=== PATIENT | female | born 1965 | race Caucasian/White ===

== ENCOUNTER 2017-03-01 18:49 | Observation (INO) ==
[2017-03-01] MEDS ORDERED: Aspirin 81 MG TAB.CHEW PO ONE (19:08)
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
[2017-03-01 19:30] LABS: Basophils % 0.4 %; Eosinophils # 0.2 K/mcL (0.0-0.6); Eosinophils % 2.5 %; Hematocrit 35.6 % (35.3-44.9); Hemoglobin 12.7 g/dL (11.5-15.4); Immature Granulocytes % 0.4 % (0-4); Lymphocytes % 29.5 %; Mean Corpuscular HGB Conc 35.7 g/dL (31.6-35.5); Mean Corpuscular Hemoglobin 31.1 pg (28.0-33.3); Mean Platelet Volume 10.1 fL (9.4-12.4); Monocytes # 0.6 K/mcL (0.0-1.3); Monocytes % 9.4 %; Neutrophils # 3.9 K/mcL (1.6-8.9); Platelet Count 189 K/mcL (140-400); Red Blood Count 4.09 M/mcL (3.82-4.97); Red Cell Distribution Width 12.2 % (11.5-14.5); Segmented Neutrophils % 57.8 %
[2017-03-01 19:38] LABS: Prothrombin Time 10.8 Seconds (9.4-12.1)
[2017-03-01 19:41] LABS: Activated Partial Thrombo Time 30.3 Seconds (26.0-36.0)
[2017-03-01 19:46] LABS: Alanine Aminotransferase 252 Units/L (0-55); Albumin 3.4 g/dL (3.5-5.0); Albumin/Globulin Ratio 1.3 (1.1-2.2); Alkaline Phosphatase 258 Units/L (38-126); Aspartate Amino Transferase 525 Units/L (5-34); BUN/Creatinine Ratio 22 (6-26); Bilirubin,Total 0.5 mg/dL (0.2-1.2); Blood Urea Nitrogen 14 mg/dL (7-20); Calcium 8.8 mg/dL (8.6-10.8); Carbon Dioxide 27 mEq/L (19-29); Chloride 87 mEq/L (98-109); Globulin 2.7 g/dL (2.4-3.5); Glucose 155 mg/dL (70-99); Osmolality,Calculated 260 (280-300); Potassium 4.2 mEq/L (3.5-4.5); Sodium 123 mEq/L (136-145); Total Protein 6.1 g/dL (6.0-8.3); eGFR For African Americans > 60 (> 60); eGFR For Non-African Americans > 60 (> 60)
[2017-03-01 20:05] LABS: Thyroid Stimulating Hormone 1.081 mcIU/mL (0.350-4.840); Valproate 44.8 mcg/mL (50-100)
[2017-03-01 21:24] LABS: Bilirubin,Urine Negative (Negative); Blood,Urine Trace-intact (Negative); Clarity,Urine Clear (Clear); Color,Urine Yellow (Yellow); Glucose,Urine (UA) 500 mg/dL (Normal); Ketones,Urine Negative (Negative); Leukocyte Esterase,Urine Negative (Negative); Nitrite,Urine Negative (Negative); PH,Urine 7.5 pH Units (5.0-8.0); Protein,Urine 100 mg/dL (Neg-Trace); Specific Gravity,Urine 1.015 (1.010-1.025); Urobilinogen,Urine Normal (Normal)
[2017-03-01 21:34] LABS: Bacteria,Urine Moderate per hpf (None-Few); RBC,Urine 0-3 per hpf (0-3); Squamous Epithelial Cell,Urine Many per lpf (None-Few); WBC,Urine 0-3 per hpf (0-3)
[2017-03-01 21:35] LABS: Amorphous Sediment,Urine Few (Few)
[2017-03-01] MEDS ORDERED: Naloxone 0.4 MG/ML INJ IVP PRN (21:45)
[2017-03-01] MEDS ORDERED: *HR* Dextrose 50 % in Water (Syg) 50 ML SYRINGE IVP PRN (21:45)
[2017-03-01] MEDS ORDERED: Dextrose Gel 15 GM PO PRN ×2 (21:45)
[2017-03-01] MEDS ORDERED: Ibuprofen 600 MG TABLET PO PRN (21:45)
[2017-03-01] MEDS ORDERED: D5% in Water 1,000 ML IVC PRN (21:45)
[2017-03-01] MEDS ORDERED: Albuterol 2.5 MG/3 ML NEBULIZER IH PRN (21:45)
[2017-03-01] MEDS ORDERED: Valproic Acid Oral Soln 250 MG/5 ML UDC PO SCH (21:45)
[2017-03-01] MEDS ORDERED: Insulin DETEMIR 100 UNIT/ML per UNIT SQ ONE (22:15)
[2017-03-01] MEDS: 0.9 % Sodium Chloride 1,000 ML IVC SCH (23:09)
[2017-03-02] MEDS: Fish Oil Omega-3 Softgel PO SCH ×2 (03:41→08:29)
[2017-03-02] MEDS: Gabapentin 300 MG CAPSULE PO SCH ×3 (03:45→15:50)
[2017-03-02] MEDS: MENTHOL TP SCH ×3 (03:46→12:44)
[2017-03-02] MEDS: Famotidine 20 MG TABLET PO SCH ×2 (03:47→08:27)
[2017-03-02] MEDS: OXcarbazepine 150 MG TABLET PO SCH ×2 (03:47→08:27)
[2017-03-02 07:30] LABS: INR 0.9; Prothrombin Time 9.7 Seconds (9.4-12.1)
[2017-03-02 07:33] LABS: Activated Partial Thrombo Time 28.4 Seconds (26.0-36.0)
[2017-03-02] MEDS: Insulin LISPRO 300 UNITS/3 ML VIAL SQ SCH ×3 (08:26→15:50)
[2017-03-02] MEDS ORDERED: Cholecalciferol (D-3) 1,000 UNIT TABLET PO SCH (09:00)
[2017-03-02] MEDS ORDERED: Multivit/Ca/Min/Fe/FA 1 TAB TABLET PO SCH (09:00)
[2017-03-02] MEDS ORDERED: Saline Nasal Spray 44 ML BOTTLE NS SCH (09:00)
[2017-03-02] MEDS ORDERED: Divalproex (12 HR) 250 MG TABLET PO SCH (09:00)
[2017-03-02] MEDS ORDERED: Budesonide/Formoterol 80/4.5 MDI IH SCH (10:00)
[2017-03-02] MEDS: 0.9 % Sodium Chloride 1,000 ML IVC SCH (10:11)
[2017-03-02 10:35] VITALS: BP 139/61
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
[2017-03-02 15:51] LABS: Alanine Aminotransferase 249 Units/L (0-55); Albumin 3.4 g/dL (3.5-5.0); Albumin/Globulin Ratio 1.2 (1.1-2.2); Alkaline Phosphatase 244 Units/L (38-126); Aspartate Amino Transferase 114 Units/L (5-34); BUN/Creatinine Ratio 19 (6-26); Bilirubin,Total 0.2 mg/dL (0.2-1.2); Blood Urea Nitrogen 15 mg/dL (7-20); Calcium 8.8 mg/dL (8.6-10.8); Carbon Dioxide 24 mEq/L (19-29); Chloride 102 mEq/L (98-109); Globulin 2.9 g/dL (2.4-3.5); Glucose 405 mg/dL (70-99); Osmolality,Calculated 294 (280-300); Potassium 5.6 mEq/L (3.5-4.5); Sodium 133 mEq/L (136-145); Total Protein 6.3 g/dL (6.0-8.3); eGFR For African Americans > 60 (> 60); eGFR For Non-African Americans > 60 (> 60)
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
[2017-03-02] MEDS ORDERED: Valproic Acid Oral Soln 250 MG/5 ML UDC PO SCH (21:00)
[2017-03-02] MEDS ORDERED: Insulin DETEMIR 100 UNIT/ML X5UNITS SQ SCH (21:00)
[2017-03-02] MEDS ORDERED: Insulin LISPRO 300 UNITS/3 ML VIAL SQ SCH (21:00)
[2017-03-02 23:48] LABS: Hepatitis A Antibody IgM Nonreactive (Nonreactive); Hepatitis B Core IgM Nonreactive (Nonreactive); Hepatitis B Surface Antigen Nonreactive (Nonreactive); Hepatitis C Virus Antibody Nonreactive (Nonreactive)
--- NOTE | 2017-03-03 21:50 | Electrocardiograph Report ---
[address] [place], [place] [address] Test Date: 2017-03-01 Pat Name: Alpa Stallworth Department: [id number] Room: [facility] Gender: F Subsea Engineer: [id number] : 1965 Requested By: Cecilia Maloney Order Number: [id number] Reading MD: Bill Yanez MD Measurements Intervals [place] Rate: 80 P: 72 TN: 195 QRS: 74 QRSD: 98 T: -49 QT: 369 QTc: 405 Interpretive Statements SINUS RHYTHM INFERIOR ISCHEMIA Electronically Signed On 03-03-2017 21:48:46 EST by Bill Yanez MD
== END 2017-03-02 17:30 | disposition home or self-care (01) ==
LOC: EMEROOPIK 18:49 → INPPIK 18:49
PROVIDERS: ADMIT Internal Medicine; ATTEND Internal Medicine

== ENCOUNTER 2017-06-12 12:36 | Observation (INO) ==
[2017-06-12 13:45] LABS: Basophils % 0.4 %; Eosinophils # 0.2 K/mcL (0.0-0.6); Eosinophils % 1.8 %; Hematocrit 35.6 % (35.3-44.9); Hemoglobin 12.2 g/dL (11.5-15.4); Immature Granulocytes % 1.7 % (0-4); Lymphocytes # 1.9 K/mcL (0.6-4.6); Lymphocytes % 22.9 %; Mean Corpuscular HGB Conc 34.3 g/dL (31.6-35.5); Mean Corpuscular Hemoglobin 30.5 pg (28.0-33.3); Mean Platelet Volume 10.3 fL (9.4-12.4); Monocytes # 0.8 K/mcL (0.0-1.3); Monocytes % 10.3 %; Neutrophils # 5.2 K/mcL (1.6-8.9); Platelet Count 340 K/mcL (140-400); Segmented Neutrophils % 62.9 %
[2017-06-12 13:57] LABS: BUN/Creatinine Ratio 24 (6-26); Blood Urea Nitrogen 12 mg/dL (6-20); Calcium 8.9 mg/dL (8.6-10.3); Carbon Dioxide 28 mEq/L (23-29); Chloride 91 mEq/L (98-107); Glucose 108 mg/dL (70-105); Osmolality,Calculated 258 (280-300); Potassium 4.4 mEq/L (3.5-5.1); Sodium 124 mEq/L (136-145); eGFR For Non-African Americans > 60 (> 60)
--- NOTE | 2017-06-12 13:57 | Emergency Department Note ---
Disposition Clinical Impression: Hyponatremia, Altered mental state, Elevated blood pressure reading Diabetes mellitus Qualifiers: Diabetes mellitus type: type 2 Disposition: Admitted As Inpatient Referrals: Lisa Henderson MD [Primary Care Provider] - Time of Disposition: 15:57 Altered Mental Status HPI - General Chief Complaint: ED Altered Mental Status Stated Complaint: altered mental status Time Seen by Provider: 06/12/17 13:06 Source: EMS Limitations: altered mental status Nursing Notes Reviewed: Yes Vital Signs Reviewed: Yes - History of Present Illness complaint: altered mental status (Not as alert. Apparently did not sleep last night. Report states that she does take morning meds which make her drowsy. ) Onset (ago): hour(s) (6) Timing confirmed by: caregiver Consistency of Symptoms: getting worse Context: history psychiatric disease Associated symptoms: Reports: denies other symptoms. Denies: cough, diaphoresis , fever, loss of appetite, shortness of breath - Related Data Home Medications Medication Instructions Recorded Confirmed Docusate Sodium [Colace] 100 mg PO HS 02/11/15 06/12/17 Gabapentin [Neurontin] 600 mg PO TID 02/11/15 06/12/17 Valproic Acid 750 mg PO HS 02/11/15 06/12/17 Insulin Glargine,Hum.rec.anlog 30 unit SQ HS 02/12/15 06/12/17 [Lantus Solostar] Cholecalciferol (Vitamin D3) 5,000 unit PO DAILY 06/14/15 06/12/17 [Vitamin D3] Fluticasone/Salmeterol [Advair 1 each IH BID 06/14/15 06/12/17 100-50 Diskus] OXcarbazepine [Oxcarbazepine] 600 mg PO BID 06/14/15 06/12/17 Quetiapine Fumarate [Seroquel] 300 mg PO HS 06/14/15 06/12/17 Ranitidine HCl [Zantac] 150 mg PO BID 06/14/15 06/12/17 Albuterol Sulfate [Proair 90 mcg IH Q4HR PRN 06/15/15 06/12/17 Respiclick] Insulin Regular Human [Humulin R] 0 unit SQ TIDAC 06/15/15 06/12/17 Albuterol Neb [Proventil Neb] 2.5 mg IH Q4HR PRN 10/03/15 06/12/17 Benztropine Mesylate 1 mg PO DAILY 10/03/15 06/12/17 [place]-3/Dha/Epa/Fish Oil [Fish Oil 2 cap PO BID 10/03/15 06/12/17 [place]-3 Softgel] Paroxetine HCl 20 mg PO DAILY 10/03/15 06/12/17 Quetiapine Fumarate [Seroquel Xr] 2 tab PO DAILY 10/03/15 06/12/17 Albuterol Sulfate [Proair Hfa] 2 puff IH Q4H PRN 07/27/16 06/12/17 Divalproex (12 HR) [Depakote (12 500 mg PO QAM 07/27/16 06/12/17 HR)] Haloperidol [Haldol] 5 mg PO BID 07/27/16 06/12/17 Menthol [Icy Hot] 1 each TP QID 07/27/16 06/12/17 Multivitamin,Therapeutic 1 each PO DAILY 07/27/16 06/12/17 [Thera-Tabs] Saline Nasal [place] [[place] Nasal 1 ml NS DAILY 07/27/16 06/12/17 [place]] Atorvastatin [Lipitor] 80 mg PO HS 06/12/17 06/12/17 Methocarbamol [Robaxin] 500 mg PO BID 06/12/17 06/12/17 Previous Rx's Medication Instructions Recorded Ibuprofen [Motrin] 600 mg PO Q8HR PRN #21 tab 10/08/16 Allergies Allergy/AdvReac Type Severity Reaction Status Date / Time carbamazepine [From Tegretol] Allergy Unknown Hives Verified 03/02/17 03:52 codeine Allergy Hives Verified 03/02/17 03:52 phenytoin Allergy Hives Verified 03/02/17 03:50 pregabalin [From Lyrica] Allergy Hives Verified 03/02/17 03:51 tramadol [From Ultram] Allergy Hives Verified 03/02/17 03:51 All systems ED: reviewed and negative except as stated. Constitutional: Denies: fever, chills Eyes: Denies: vision change ENT ED: Denies: ear pain, throat pain Respiratory: Denies: cough, dyspnea, wheezes Gastrointestinal: Reports: abdominal pain. Denies: nausea, vomiting Genitourinary: Denies: dysuria, frequency Integumentary: Denies: rash Past Medical History - Past Medical History Medical history: Reports: asthma, COPD, coronary artery disease, diabetes, fibromyalgia, GERD, hyperlipidemia, hypertension, osteoporosis, seizures, other Surgical history: Reports: cholecystectomy, hysterectomy, orthopedic, other Psychiatric history: Reports: anxiety, bipolar, depression, prior suicide attempt, schizophrenia, previous psychiatric hospitalization, other [employer] history: Reports: bilateral tubal ligation - Social History Smoking Status: Current every day smoker Smokeless Tobacco Status: No Alcohol use: Reports: none Drug use: Reports: none Physical Exam - General Limitations: altered mental status General appearance: lethargic (Slow to respond slowed speech.) - Eye Eye exam: Present: PERRL, EOMI. Absent: conjunctival injection - ENT ENT exam: normal exam, normal oropharynx, mucous membranes moist, TM's normal bilaterally - Neck Neck exam: Absent: trachea midline - Respiratory Respiratory exam: Present: normal lung sounds bilaterally - Cardiovascular Cardiovascular exam: Present: regular rate, normal rhythm - Abdominal Exam Abdominal exam: Present: soft, Non-Tender. Absent: guarding, rebound - Extremities Exam Extremities exam: Absent: tenderness - Back Exam Back exam: Absent: tenderness - Neurological Exam Neurological exam: Present: alert, oriented X3, CN II-XII intact - Psychiatric Psychiatric exam: Present: normal mood - Skin Skin exam: Present: warm. Absent: rash Course Course Narrative: Discussed with Dr. Amaro the patient will be admitted. Vital Signs Temperature 97.2 F L 06/12/17 12:49 Pulse Rate 59 06/12/17 12:49 Respiratory Rate 13 06/12/17 12:49 Blood Pressure 159/79 06/12/17 12:49 O2 Sat by Pulse Oximetry 98 06/12/17 12:49 Temperature 97.2 F L 06/12/17 12:49 Pulse Rate 59 06/12/17 12:49 Respiratory Rate 13 06/12/17 12:49 Blood Pressure 159/79 06/12/17 12:49 O2 Sat by Pulse Oximetry 98 06/12/17 12:49 Oxygen Delivery Oxygen Delivery Room Air Altered Mental Status - Medical Records Medical records reviewed: Yes I reviewed the patient's medical records. - Lab Data Lab results reviewed: Yes I reviewed the patient's lab results. Result diagrams: 06/12/17 13:38 06/12/17 13:38 Lab Results 06/12/17 06/12/17 Range/Units 13:38 13:38 WBC 8.2 (4.3-11.1) K/mcL RBC 4.00 (3.82-4.97) M/mcL Hgb 12.2 (11.5-15.4) g/dL Hct 35.6 (35.3-44.9) % MCV 89.0 (83.0-100.0) fL MCH 30.5 (28.0-33.3) pg MCHC 34.3 (31.6-35.5) g/dL RDW 14.0 (11.5-14.5) % Plt Count 340 (140-400) K/mcL MPV 10.3 (9.4-12.4) fL Immature Gran % 1.7 (0-4) % Seg Neutrophils % 62.9 % Lymphocytes % 22.9 % Monocytes % 10.3 % Eosinophils % 1.8 % Basophils % 0.4 % Neutrophils # 5.2 (1.6-8.9) K/mcL Lymphocytes # 1.9 (0.6-4.6) K/mcL Monocytes # 0.8 (0.0-1.3) K/mcL Eosinophils # 0.2 (0.0-0.6) K/mcL Basophils # 0.0 (0.0-0.2) K/mcL Sodium 124 L (136-145) mEq/L Potassium 4.4 (3.5-5.1) mEq/L Chloride 91 L (98-107) mEq/L Carbon Dioxide 28 (23-29) mEq/L BUN 12 (6-20) mg/dL Creatinine 0.49 L (0.60-1.20) mg/dL Est GFR ( Amer) > 60 (> 60) Est GFR (Non-Af Amer) > 60 (> 60) BUN/Creatinine Ratio 24 (6-26) Glucose 108 H (70-105) mg/dL Calculated Osmolality 258 L (280-300) Calcium 8.9 (8.6-10.3) mg/dL - Radiology Data Radiology results reviewed: Yes I reviewed the patient's radiology results. cc: Lisa Henderson; Travis Kim; ~ EXAMINATION: SINGLE VIEW OF THE CHEST 06/12/2017 2:18 pm COMPARISON: 03/01/2017 HISTORY: ORDERING SYSTEM PROVIDED HISTORY: chest pain FINDINGS: The lungs and pleural spaces are without acute focal process. The cardiomediastinal silhouette is without acute process. There is no evidence of pneumothorax. The osseous structures are without acute process. XR/XR chest 1V portable IMPRESSION: No acute process. D/ / Malvin Chau MD / Malvin Chau MD Interpreting Provider: Malvin Chau MD INATION: CT OF THE HEAD WITHOUT CONTRAST 06/12/2017 2:18 pm TECHNIQUE: CT of the head was performed without the administration of intravenous contrast. Dose modulation, iterative reconstruction, and/or weight based adjustment of the mA/kV was utilized to reduce the radiation dose to as low as reasonably achievable. COMPARISON: None. HISTORY: ORDERING SYSTEM PROVIDED HISTORY: trauma FINDINGS: BRAIN/VENTRICLES: There is no acute intracranial hemorrhage, mass effect or midline shift. No abnormal extra-axial fluid collection. The moraes-white differentiation is maintained without evidence of an acute infarct. There is no evidence of hydrocephalus. Mild chronic small vessel ischemic disease is identified within the periventricular white matter most apparent within the left frontal lobe. Left basal ganglionic lacunes are noted. ORBITS: The visualized portion of the orbits demonstrate no acute abnormality. SINUSES: The visualized paranasal sinuses and mastoid air cells demonstrate no acute abnormality. SOFT TISSUES/SKULL: No acute abnormality of the visualized skull or soft tissues. CT/CT head/brain wo con IMPRESSION: No acute intracranial abnormality. Mild chronic small vessel ischemic disease within the periventricular white matter. Left basal ganglionic lacunes. - EKG Data EKG attestation: Yes I reviewed and interpreted this EKG. EKG shows normal: sinus rhythm Rate: bradycardia [place]/QRS: normal ST segment depression in: II, III, aVF When compared to previous EKG there are: no significant changes Interpretation: unchanged when compared to prior tracing (date) TPA Checklist - LKW: 3-4.5 hrs Add. Warnings/Precautions Patient/family understanding: The patient/family members have been counseled and understood the risk, benefit , and alternatives of treatment.
[2017-06-12] MEDS ORDERED: Naloxone 0.4 MG/ML INJ IVP PRN (16:19)
[2017-06-12] MEDS ORDERED: *HR* Dextrose 50 % in Water (Syg) 50 ML SYRINGE IVP PRN (16:19)
[2017-06-12] MEDS ORDERED: Albuterol 2.5 MG/3 ML NEBULIZER IH PRN (16:19)
[2017-06-12] MEDS ORDERED: D5% in Water 1,000 ML IVC PRN (16:19)
[2017-06-12] MEDS ORDERED: Dextrose Gel 15 GM/37.5 ML TUBE PO PRN ×4 (16:19)
[2017-06-12] MEDS: 0.9 % Sodium Chloride 1,000 ML IVC SCH (19:01)
[2017-06-12] MEDS: Insulin LISPRO 300 UNITS/3 ML VIAL SQ SCH (19:43)
[2017-06-12] MEDS ORDERED: Insulin DETEMIR 100 UNIT/ML per UNIT SQ ONE (21:00)
[2017-06-12] MEDS ORDERED: Insulin LISPRO 300 UNITS/3 ML VIAL SQ SCH (21:00)
[2017-06-12] MEDS: Gabapentin 300 MG CAPSULE PO SCH (21:06)
[2017-06-12 22:28] LABS: Bilirubin,Urine Negative (Negative); Blood,Urine Negative (Negative); Clarity,Urine Slightly Cloudy (Clear); Glucose,Urine (UA) 500 mg/dL (Normal); Ketones,Urine Negative (Negative); Leukocyte Esterase,Urine Negative (Negative); Nitrite,Urine Negative (Negative); Protein,Urine 30 mg/dL (Neg-Trace); Specific Gravity,Urine 1.015 (1.010-1.025); Urobilinogen,Urine Normal (Normal)
[2017-06-12 22:30] LABS: Color,Urine Light Yellow (Yellow)
[2017-06-12 22:34] LABS: Amorphous Sediment,Urine Moderate (Few); Squamous Epithelial Cell,Urine Few per lpf (None-Few); WBC,Urine 0-3 per hpf (0-3)
[2017-06-12] MEDS: Budesonide/Formoterol 80/4.5 MDI IH SCH (23:38)
[2017-06-13] MEDS: 0.9 % Sodium Chloride 1,000 ML IVC SCH (02:49)
[2017-06-13 05:57] LABS: BUN/Creatinine Ratio 20 (6-26); Blood Urea Nitrogen 9 mg/dL (6-20); Calcium 8.7 mg/dL (8.6-10.3); Carbon Dioxide 27 mEq/L (23-29); Chloride 95 mEq/L (98-107); Glucose 174 mg/dL (70-105); Osmolality,Calculated 269 (280-300); Potassium 4.1 mEq/L (3.5-5.1); Sodium 128 mEq/L (136-145); eGFR For Non-African Americans > 60 (> 60)
[2017-06-13] MEDS ORDERED: Ibuprofen 400 MG TABLET PO PRN (05:58)
[2017-06-13 06:29] VITALS: BP 170/65
[2017-06-13] MEDS ORDERED: *HR* Enoxaparin 40 MG/0.4 ML SYRINGE SQ SCH (07:00)
[2017-06-13] MEDS: Insulin LISPRO 300 UNITS/3 ML VIAL SQ SCH ×2 (07:16→11:51)
[2017-06-13] MEDS: Gabapentin 300 MG CAPSULE PO SCH (08:22)
[2017-06-13] MEDS ORDERED: Divalproex (24 HR) 250 MG TABLET PO SCH (09:00)
--- NOTE | 2017-06-13 10:17 | Internal Med History&Physical ---
Date of Encounter: 06/13/17 Time of Encounter: 09:50 Assessment and Plan (1) Altered mental state Current visit: Yes Status: Acute Mental status seems back to baseline at this time. Etiology uncertain since she has had chronic hyponatremia documented since September 2014 on most labs. Qualifiers: Altered mental status type: unspecified Qualified Code(s): R41.82 - Altered mental status, unspecified (2) Hyponatremia Current visit: Yes Status: Acute As above Internal Medicine - H&P: HPI Chief complaint: Hyponatremia, altered mental status Admitted From: Emergency Dept Plans for Post Hospital Care: Home History of present illness: Ms. Stallworth is a 51 year old female sent to emergency room after she was found to have altered mental status at the shelter. Evaluation in emergency room showed hyponatremia with sodium 124. She had elevated blood pressure 173/68. She was admitted to [facility] floor for ongoing care needs. She cannot give any significant additional history. She states she feels back to her baseline now. Past Med Surg Social Fam HX - Past Medical History Medical history: asthma, COPD, coronary artery disease, diabetes, fibromyalgia, GERD, hyperlipidemia, hypertension, osteoporosis, seizures, other Psychiatric history: anxiety, bipolar, depression, prior suicide attempt, schizophrenia, previous psychiatric hospitalization, other - Past Surgical History Surgical History: cholecystectomy, hysterectomy, orthopedic, other - Social History Smoking Status: Current every day smoker Packs per day: 0.5 Smokeless Tobacco Status: No Alcohol use: none Drug use: none - Family History Mother Living Status: Still Living Hx Family Cardiac Disorders: No Hx Family Respiratory Disorders: No Hx Family Cancer: No Hx Family GI Disorders: No Hx Family Endocrine Disorder: No Hx Family Neuromuscular Disorders: No Hx Family Neurologic Disorders: Yes Hx Family HEENT Disorders: No Hx Family Autoimmune Disorders: No Internal Medicine - H&P: Meds Docusate Sodium [Colace] 100 mg PO HS 02/11/15 [History] Gabapentin [Neurontin] 600 mg PO TID 02/11/15 [History] Valproic Acid 750 mg PO HS 02/11/15 [History] Insulin Glargine,Hum.rec.anlog [Lantus Solostar] 30 unit SQ HS 02/12/15 [History ] Cholecalciferol (Vitamin D3) [Vitamin D3] 5,000 unit PO DAILY 06/14/15 [History] Fluticasone/Salmeterol [Advair 100-50 Diskus] 1 each IH BID 06/14/15 [History] OXcarbazepine [Oxcarbazepine] 600 mg PO BID 06/14/15 [History] Quetiapine Fumarate [Seroquel] 300 mg PO HS 06/14/15 [History] Ranitidine HCl [Zantac] 150 mg PO BID 06/14/15 [History] Albuterol Sulfate [Proair Respiclick] 90 mcg IH Q4HR PRN 06/15/15 [History] Insulin Regular Human [Humulin R] 0 unit SQ TIDAC 06/15/15 [History] Albuterol Neb [Proventil Neb] 2.5 mg IH Q4HR PRN 10/03/15 [History] Benztropine Mesylate 1 mg PO DAILY 10/03/15 [History] [place]-3/Dha/Epa/Fish Oil [Fish Oil [place]-3 Softgel] 2 cap PO BID 10/03/15 [ History] Paroxetine HCl 20 mg PO DAILY 10/03/15 [History] Quetiapine Fumarate [Seroquel Xr] 2 tab PO DAILY 10/03/15 [History] Albuterol Sulfate [Proair Hfa] 2 puff IH Q4H PRN 07/27/16 [History] Divalproex (12 HR) [Depakote (12 HR)] 500 mg PO QAM 07/27/16 [History] Haloperidol [Haldol] 5 mg PO BID 07/27/16 [History] Menthol [Icy Hot] 1 each TP QID 07/27/16 [History] Multivitamin,Therapeutic [Thera-Tabs] 1 each PO DAILY 07/27/16 [History] Saline Nasal [place] [[place] Nasal [place]] 1 ml NS DAILY 07/27/16 [History] Ibuprofen [Motrin] 600 mg PO Q8HR PRN #21 tab 10/08/16 [Rx] Atorvastatin [Lipitor] 80 mg PO HS 06/12/17 [History] Methocarbamol [Robaxin] 500 mg PO BID 06/12/17 [History] 3 Allergy/AdvReac Type Severity Reaction Status Date / Time carbamazepine [From Tegretol] Allergy Unknown Hives Verified 03/02/17 03:52 codeine Allergy Hives Verified 03/02/17 03:52 phenytoin Allergy Hives Verified 03/02/17 03:50 pregabalin [From Lyrica] Allergy Hives Verified 03/02/17 03:51 tramadol [From Ultram] Allergy Hives Verified 03/02/17 03:51 All Systems PM: A 10-system review of systems was performed and is negative for pertinent findings except as documented above in the HPI. Review of systems: Gen.: Her weight has been stable at approximately 75 kg since the February 2017 hospitalization. Cardiovascular: She claims she had OK 2013 followed by single stent placement. She has history of hypertension. She denies heart failure DVT or pulmonary embolus. Respiratory: She is smoked since age 19 a total of 28 years up to 1 pack per day. She claims a diagnosis of asthma but does not use home oxygen. GI: She has had cholecystectomy but denies disorders of her liver or exocrine pancreas : She denies hematuria dysuria or kidney stones Neurologic: She claims history of seizures. She denies large distribution strokes Endocrine: She was diagnosed with diabetes at age 32. She has hyperlipidemia but denies thyroid disease Hematology/oncology: She denies blood disorders cancers or anemia Psychiatric: She has history of anxiety, bipolar disorder, and paranoid schizophrenia. [place] skeletal: She had left knee fracture several years ago requiring surgical repair. She states she has frequent spasms of her calf muscles. - Constitutional Vitals: Temp Pulse Resp BP Pulse Ox 98.8 F 70 17 170/65 98 06/13/17 06:28 06/13/17 06:28 06/13/17 06:28 06/13/17 06:28 06/13/17 06:28 Exam: General: She is a well-developed well-nourished female who appears in no acute distress HEENT: Head is atraumatic and normal cephalic. Eyes: EOMI. There is no scleral icterus. Mouth: Mucosa is moist. Neck: Supple and nontender. There is no thyromegaly or adenopathy noted. Heart: Regular without murmurs gallops or ectopics Lungs: No wheezes or crackles are heard. Abdomen: Soft and nontender. No masses or guarding are noted. Extremities: There is no cyanosis edema or clubbing noted. Dorsalis pedis and posttibial pulses are 1-2/2 bilaterally. Neurologic: Mental status: She is talkative and seems to be a fair to good historian. Cranial nerves: Smile is symmetric. Forehead wrinkles bilaterally. Tongue protrudes midline. EOMI. She appears to have a slightly disconjugate gaze. Motor: There is no pronator drift. Cerebellar: Finger to nose is intact bilaterally. Skin: Warm and dry Internal Med - H&P Results - Labs CBC & Chem 7: 06/12/17 13:38 06/13/17 04:43 Labs: BMP 06/13/17 04:43 Sodium 128 L Potassium 4.1 Chloride 95 L Carbon Dioxide 27 BUN 9 Creatinine 0.46 L Glucose 174 H Calcium 8.7 Urine 06/12/17 Range/Units 20:45 Urine Color Light Yellow (Yellow) Urine Clarity Slightly Cloudy A (Clear) Urine pH 7.0 (5.0-8.0) pH Units Ur Specific [place] 1.015 (1.010-1.025) Urine Protein 30 H (Neg-Trace) mg/dL Urine Glucose (UA) 500 H (Normal) mg/dL
--- NOTE | 2017-06-13 10:27 | Discharge Summary ---
Date of Encounter: 06/13/17 Time of Encounter: 09:50 - Discharge Diagnosis (1) Altered mental state Priority: Primary Status: Resolved Qualifiers: Altered mental status type: unspecified Qualified Code(s): R41.82 - Altered mental status, unspecified (2) Hyponatremia Priority: Secondary Status: Chronic - Discharge Medications Home Medications: Docusate Sodium [Colace] 100 mg PO HS 02/11/15 [History] Gabapentin [Neurontin] 600 mg PO TID 02/11/15 [History] Valproic Acid 750 mg PO HS 02/11/15 [History] Insulin Glargine,Hum.rec.anlog [Lantus Solostar] 30 unit SQ HS 02/12/15 [History ] Cholecalciferol (Vitamin D3) [Vitamin D3] 5,000 unit PO DAILY 06/14/15 [History] Fluticasone/Salmeterol [Advair 100-50 Diskus] 1 each IH BID 06/14/15 [History] OXcarbazepine [Oxcarbazepine] 600 mg PO BID 06/14/15 [History] Quetiapine Fumarate [Seroquel] 300 mg PO HS 06/14/15 [History] Ranitidine HCl [Zantac] 150 mg PO BID 06/14/15 [History] Albuterol Sulfate [Proair Respiclick] 90 mcg IH Q4HR PRN 06/15/15 [History] Insulin Regular Human [Humulin R] 0 unit SQ TIDAC 06/15/15 [History] Albuterol Neb [Proventil Neb] 2.5 mg IH Q4HR PRN 10/03/15 [History] Benztropine Mesylate 1 mg PO DAILY 10/03/15 [History] [place]-3/Dha/Epa/Fish Oil [Fish Oil [place]-3 Softgel] 2 cap PO BID 10/03/15 [ History] Paroxetine HCl 20 mg PO DAILY 10/03/15 [History] Quetiapine Fumarate [Seroquel Xr] 2 tab PO DAILY 10/03/15 [History] Albuterol Sulfate [Proair Hfa] 2 puff IH Q4H PRN 07/27/16 [History] Divalproex (12 HR) [Depakote (12 HR)] 500 mg PO QAM 07/27/16 [History] Haloperidol [Haldol] 5 mg PO BID 07/27/16 [History] Menthol [Icy Hot] 1 each TP QID 07/27/16 [History] Multivitamin,Therapeutic [Thera-Tabs] 1 each PO DAILY 07/27/16 [History] Saline Nasal [place] [[place] Nasal [place]] 1 ml NS DAILY 07/27/16 [History] Ibuprofen [Motrin] 600 mg PO Q8HR PRN #21 tab 10/08/16 [Rx] Atorvastatin [Lipitor] 80 mg PO HS 06/12/17 [History] Methocarbamol [Robaxin] 500 mg PO BID 06/12/17 [History] Allergies/Adverse Reactions: 3 Allergy/AdvReac Type Severity Reaction Status Date / Time carbamazepine [From Tegretol] Allergy Unknown Hives Verified 03/02/17 03:52 codeine Allergy Hives Verified 03/02/17 03:52 phenytoin Allergy Hives Verified 03/02/17 03:50 pregabalin [From Lyrica] Allergy Hives Verified 03/02/17 03:51 tramadol [From Ultram] Allergy Hives Verified 03/02/17 03:51 Date of admission: 06/12/17 16:08 Primary care physician: Lisa Henderson - Patient Status Disposition: Home, Self-Care Functional capacity at discharge: independent ambulation Overall status at discharge: patient is progressing back to baseline - Discharge Instructions Forms: ED Satisfaction Letter Additional Instructions: Check BMP in 2 days - Diet and Activity Activity: resume usual activities as tolerated Diet: advance to your usual diet Hospital course: Ms. Stallworth is a 51 year old female sent to emergency room after she was found to have altered mental status at the residential. Evaluation in emergency room showed hyponatremia with sodium 124. She had elevated blood pressure 173/68. She was admitted to [facility] floor for ongoing care needs. Initial orders were written by the emergency room physician. I saw her on June 13 and performed the history physical and discharge. She was started on normal saline IV. At the time I saw her she appeared back to her mental baseline. Her sodium kristal to 128. Review of archived labs showed hyponatremia present on most labs since September 2014. I suspect she has possible multiple etiologies contributing to the hyponatremia including significant fluid intake and possible SIADH from medications. Her PCP and/or psychiatrist can review her psych meds to see if additional changes should be made. On April 12 she was stable for discharge back to the residential where she will follow with Dr. Henderson. We will order repeat labs in 2 days. - Time Spent with Patient Total time spent providing and/or coordinating discharge services: - Constitutional Vitals: Temp Pulse Resp BP Pulse Ox 98.8 F 70 17 170/65 98 06/13/17 06:28 06/13/17 06:28 06/13/17 06:28 06/13/17 06:28 06/13/17 06:28
[2017-06-13] MEDS: Budesonide/Formoterol 80/4.5 MDI IH SCH (10:55)
[2017-06-13] MEDS ORDERED: Insulin DETEMIR 100 UNIT/ML X5UNITS SQ SCH (21:00)
== END 2017-06-13 12:27 | disposition home or self-care (01) ==
LOC: EMEROOPIK 12:36 → INPPIK 12:36
PROVIDERS: ADMIT Internal Medicine; ATTEND Internal Medicine